=== PATIENT | male | born 2000 | race Two or more races ===

== ENCOUNTER 2022-12-15 11:20 | Emergency (ER) | payer BC, MEDICAID ==
[~2022-12-15] VITALS: Ht 175.3 cm; Wt 81.8 kg
[2022-12-15 12:29] VITALS: BP 140/68
[2022-12-15] MEDS ORDERED: SUMAtriptan SUCCINATE 6 MG/0.5 ML VL SC ONE (14:30)
[2022-12-15] MEDS ORDERED: ONDANSETRON ODT 4 MG TAB PO ONE (14:30)
[2022-12-15] MEDS ORDERED: SUMA50TA2 PO (15:44)
[2022-12-15] MEDS ORDERED: ONDA-144 PO (15:44)
== END 2022-12-15 15:41 | disposition left against medical advice (07) ==
LOC: ER 11:20
DX: G43.909 Migraine, unspecified, not intractable, without status migrainosus (principal)
CPT/HCPCS: 70450; 96372; 99285; J3030; Q0162